=== PATIENT | male | born 1975 | race American Indian/Alaskan Native ===

== ENCOUNTER 2020-10-26 10:44 | Emergency (ER) | payer SELFPAY ==
[2020-10-26 11:17] VITALS: BP 171/103
--- NOTE | 2020-10-26 11:35 | Emergency Department Report ---
Chief Complaint: High BP Stated Complaint: ELEVATED BLOOD PRESSURE. Time Seen by Provider: 10/26/20 11:31 - HPI History of Present Illness: 44-year-old male patient with history of hypertension and diabetes presents emergency department requesting clearance for DOT exam. Patient was disqualified during his DOT physical today because of his elevated blood pressure and elevated blood glucose level. States he has been compliant with his medications. He is not currently under the care of a primary care provider. He has brought paperwork from the DOT for provider signature. He is asymptomatic. - ROS Review of Systems: GENERAL: Negative for fever. CARDIOVASCULAR: Negative for chest pain. PULMONARY: Negative for shortness of breath. GASTROINTESTINAL: Negative for abdominal pain. MUSCULOSKELETAL: Negative for back pain. NEUROLOGICAL: Negative for headache. INTEGUMENTARY: Negative for rash. - Exam Vital Signs: Vital Signs 10/26/20 11:15 Temperature 98.3 F Pulse Rate 68 Respiratory 20 Rate Blood Pressure 171/103 O2 Sat by Pulse 98 Oximetry Physical Exam: General: Awake, appropriately interactive, no acute distress. Neck: Supple. Full range of motion intact. Cardiovascular: Normal peripheral perfusion. Pulmonary: No respiratory distress. Patient is speaking normally without use of accessory muscles. Skin: No apparent rashes or lesions. Neurological: No facial asymmetry. Speech is clear. Follows commands. Patient is alert and oriented. Musculoskeletal: Moves all four extremities spontaneously with normal range of motion. Psych: Cooperative. Appropriate mood and affect. MSE screening note: Focused history and physical exam performed. Due to findings the following was ordered: ED Medical Decision Making - Medical Decision Making Patient presents emergency department requesting medical clearance for DOT exam after being disqualified by an outside clinic. He is asymptomatic. It was explained to the patient in the emergency department is not authorized to perform DOT physicals or medical clearance for employment. Patient has been provided with multiple primary care referrals and instructed to call today for an appointment. Strict return precautions provided. Patient's blood pressure was noted to be elevated in the emergency department. Patient reports prior history of hypertension. Specifically denies chest pain, shortness of breath, palpitations, syncope, headache, vision changes. Neurological exam is nonfocal and remainder of vital signs are stable. No clinical indication for further diagnostic work-up and/or initiation of antihypertensive therapy at this time per ACEP asymptomatic hypertension belen delines. Patient was encouraged to follow-up with primary care provider for blood pressure recheck. Lifestyle modifications recommended. BILLING/CODING: This patient encounter does not represent a certified medical emergency. ED Disposition for MSE Clinical Impression: Encounter for medical screening examination Disposition: MED SCREENING EXAM-LEFT Is pt being admited?: No Does the pt Need Aspirin: No Condition: Stable Instructions: Medical Screening Exam Additional Instructions: Continue medications as previously prescribed. Reduce your dietary sodium intake. Exercise daily. Call primary care provider today for follow-up appointment. See referral information below. Return to the emergency department immediately for new or worsening symptoms. Referrals: MILIND PARNELL MD [Staff Physician] - 3-5 Days [facility] [Provider Group] - 3-5 Days [facility] [Outside] - 3-5 Days [facility] [Outside] - 3-5 Days [facility] [Outside] - 3-5 Days Time of Disposition: 11:35
== END 2020-10-26 11:40 | disposition left against medical advice (07) ==
LOC: ED 10:44
DX: Z00.00 Encounter for general adult medical examination without abnormal findings (principal); I10 Essential (primary) hypertension; Z53.21 Procedure and treatment not carried out due to patient leaving prior to being seen by health care provider
CPT/HCPCS: 82962